=== PATIENT | male | born 1955 | race Asian ===

== ENCOUNTER 2021-02-27 13:02 | Emergency (ER) | payer BC, MEDICAID, SELFPAY ==
[~2021-02-27] VITALS: Ht 180.3 cm; Wt 88.5 kg
[~2021-02-27 13:02] MED LIST: LISI20TA PO; METO50TA16 PO
[2021-02-27 13:54] VITALS: BP_SYST 140
[2021-02-27 14:00] VITALS: BP_SYST 140
--- NOTE | 2021-02-27 14:35 | NUR ---
DR. SARAH EXAMINING PT
[2021-02-27 15:28] LABS: BASOPHILS # (AUTO) 0.1 K/uL (0.0-0.2); BASOPHILS % (AUTO) 0.7 % (0.0-2.0); EOSINOPHILS # (AUTO) 0.3 K/uL (0.0-0.4); EOSINOPHILS % (AUTO) 3.6 % (0.0-4.0); HEMATOCRIT 40.3 % (36-54); HEMOGLOBIN 13.9 g/dL (14.0-18.0); LYMPHOCYTES % (AUTO) 12.3 % (20.5-51.5); MEAN CORPUSCULAR HEMOGLOBIN 28 pg (27-31); MEAN CORPUSCULAR HGB CONC 34 % (32-36); MEAN CORPUSCULAR VOLUME 81 fL (79.0-98.0); MONOCYTES # (AUTO) 1.1 K/uL (0.0-1.0); MONOCYTES % (AUTO) 13.5 % (1.7-9.3); NEUTROPHILS # (AUTO) 5.8 K/uL (1.8-7.7); NEUTROPHILS % (AUTO) 69.9 % (40.0-70.0); PLATELET COUNT (AUTO) 181 K/uL (130-430); RED BLOOD CELL COUNT(AUTO) 4.95 MIL/uL (4.2-6.2); RED CELL DISTRIBUTION WIDTH 13.6 % (9.0-15.0); WHITE BLOOD COUNT (AUTO) 8.3 K/uL (4.8-10.8)
[2021-02-27 15:37] LABS: CALCIUM 8.5 mg/dL (8.4-11.0); CREATININE 1.58 mg/dL (0.55-1.30); POTASSIUM 3.5 mmol/L (3.5-5.1)
[2021-02-27 15:43] LABS: ALBUMIN 3.2 g/dL (3.4-4.8); TOTAL BILIRUBIN 0.9 mg/dL (0.0-1.0)
--- NOTE | 2021-02-27 17:16 | NUR ---
AMBULATED TO BED 7
--- NOTE | 2021-02-27 17:57 | NUR ---
PT WALKED OUT OF ROOM, REQUESTING TO LEAVE DID NOT WANT TO WAIT TO SIGN AMA PAPERWORK OR SPEAK TO
== END 2021-02-27 17:57 | disposition left against medical advice (07) ==
LOC: SED 13:02
DX: J06.9 Acute upper respiratory infection, unspecified (principal); N28.9 Disorder of kidney and ureter, unspecified; I10 Essential (primary) hypertension; Z88.8 Allergy status to other drugs, medicaments and biological substances; Z79.899 Other long term (current) drug therapy; Z20.822 Contact with and (suspected) exposure to COVID-19
CPT/HCPCS: 36415; 71045; 80053; 83605; 85025; 99284